=== PATIENT | male | born 1975 | race Caucasian/White ===

== ENCOUNTER 2023-12-07 10:43 | Outpatient (RCR) | payer OTHER, SELFPAY | END 2024-01-19 13:23 | disposition home or self-care (01) | LOC: PT 10:43 | PROVIDERS: PCP Nurse Practitioner Family; Visit Provider Nurse Practitioner Family | DX: M54.12 Radiculopathy, cervical region (principal) | CPT/HCPCS: 97012; 97110; 97140; 97161 ==

== ENCOUNTER 2023-12-31 11:57 | Outpatient (OUT) | payer OTHER, SELFPAY ==
--- NOTE | 2023-12-31 12:03 | XR_ITS ---
The [address] [address] Patient Name: LINDA SANZ MRN: [id number] date: 1975 Sex: M Assigned Patient Location: [facility] Current Patient Location: Accession/Order Number: [id number] Exam Date: 12/31/2023 12:05 Report Date: 01/03/2024 09:18 At the request of: LUANA BOWSER Procedure: XR cervical spine 5V EXAMINATION: XR cervical spine 5V HISTORY: Cervical Radiculopathy M54.12 ; right side neck pain for 2 months COMPARISON: No relevant comparison available. FINDINGS: BONES: Straightening of normal lordotic curvature. No fracture, spondylolisthesis, bone lesion. No significant facet arthropathy. DISC SPACES: Mild narrowing C4-5. Moderate narrowing C5-6 and C6-7 with mild uncovertebral joint spurring suspected suspected to cause mild foramen narrowing at these levels. PARASPINOUS: Negative. No paraspinous abnormality is seen. OTHER: Negative. XR/XR cervical spine 5V IMPRESSION: 1. No appreciable acute abnormality. 2. Multilevel mild to moderate degenerative changes. Consider MRI for further evaluation if symptoms persist. Electronically authenticated by: CECILIO TRIPATHI Date: 01/03/2024 09:18
== END 2023-12-31 11:58 | disposition home or self-care (01) ==
PROVIDERS: PCP Nurse Practitioner Family; Visit Provider Nurse Practitioner Family
DX: M54.12 Radiculopathy, cervical region (principal)
CPT/HCPCS: 72050

== ENCOUNTER 2024-01-03 10:50 | Outpatient (OUT) | payer OTHER, SELFPAY ==
[2024-01-03 11:09] LABS: Basophils Absolute Auto 0.1 10^3/uL (0.0-0.1); Basophils Percent Auto 0.4 % (0.2-2.0); Eosinophils Percent Auto 0.3 % (0.9-7.0); Hematocrit 47.3 % (42.0-54.0); Immature Granulocytes Abs Auto 0.08 10^3/uL (0.00-0.03); Immature Granulocytes Pct Auto 0.6 % (0.0-0.5); Lymphocytes Absolute Auto 3.8 10^3/uL (1.2-3.8); Lymphocytes Percent Auto 29.2 % (20.5-60.0); Mean Corpuscular HGB Conc 33.8 g/dL (29.9-35.2); Mean Corpuscular Hemoglobin 30.4 pg (25.9-34.0); Mean Corpuscular Volume 89.9 fL (80.0-94.0); Mean Platelet Volume 10.5 fL (9.5-13.5); Monocytes Absolute Auto 0.9 10^3/uL (0.3-0.8); Monocytes Percent Auto 6.6 % (1.7-12.0); Neutrophils Absolute Auto 8.1 10^3/uL (1.4-6.5); Neutrophils Percent Auto 62.9 % (43.0-75.0); Platelet Count 229 10^3/uL (150-450); Red Blood Count 5.26 10^6/uL (4.70-6.10); White Blood Count 12.9 10^3/uL (4.0-11.0)
[2024-01-03 12:16] LABS: Alanine Aminotransferase 27 U/L (16-63); Albumin Globulin Ratio 1.1; Albumin Level 3.8 g/dL (3.4-5.0); Alkaline Phosphatase 68 U/L (46-116); Anion Gap 13.2; Aspartate Amino Transferase 12 U/L (15-37); BUN Creatinine Ratio 16.7; Bilirubin Total 0.4 mg/dL (0.2-1.0); Calcium 9.5 mg/dL (8.5-10.1); Carbon Dioxide 28.3 mmol/L (21.0-32.0); Chloride 103 mmol/L (98-107); Chol HDL Ratio 3.6; Cholesterol 185 mg/dL (<=200); Estimated GFR (African America >60 (>=60); Estimated GFR (Non-African Ame >60 (>=60); Globulin 3.4 g/dL; Glucose 86 mg/dL (74-106); HDL Cholesterol 51 mg/dL (40-60); LDL Cholesterol Calculated 116.8 mg/dL; Potassium 3.5 mmol/L (3.5-5.1); Sodium 141 mmol/L (136-145); TSH W/ REFLEX FT4 1.719 uIU/mL (0.358-3.740); Total Protein 7.2 g/dL (6.4-8.2); Triglycerides 86 mg/dL (<=150); VLDL CHOLESTEROL 17.2 mg/dL
== END 2024-01-03 10:51 | disposition home or self-care (01) ==
LOC: LAB 10:51
PROVIDERS: PCP Nurse Practitioner Family; Visit Provider Nurse Practitioner Family
DX: Z13.0 Encounter for screening for diseases of the blood and blood-forming organs and certain disorders involving the immune mechanism (principal); Z83.49 Family history of other endocrine, nutritional and metabolic diseases; Z13.228 Encounter for screening for other metabolic disorders; Z13.220 Encounter for screening for lipoid disorders
CPT/HCPCS: 36415; 80053; 80061; 84443; 85025

== ENCOUNTER 2024-02-25 12:21 | Outpatient (OUT) | payer OTHER, SELFPAY ==
--- NOTE | 2024-02-25 12:25 | XR_ITS ---
The [address] [address] Patient Name: LINDA SANZ MRN: [id number] date: 1975 Sex: M Assigned Patient Location: [facility] Current Patient Location: [facility] Accession/Order Number: [id number] Exam Date: 02/25/2024 12:30 Report Date: 02/25/2024 12:44 At the request of: LUANA BOWSER Procedure: XR foreign body eye JEROMY EXAMINATION: XR foreign body eye JEROMY HISTORY: Pre MRI screening COMPARISON: No relevant comparison available. FINDINGS: ORBITS: Negative for a metallic foreign body. OTHER: Negative. XR/XR foreign body eye JEROMY IMPRESSION: No metallic foreign body in the orbits Electronically authenticated by: NIKKI MUNOZ Date: 02/25/2024 12:44
--- NOTE | 2024-02-25 12:25 | MR_ITS ---
The [place] [id number] Patient Name: ILNDA SANZ MRN: [id number] date: 1975 Sex: M Assigned Patient Location: [facility] Current Patient Location: Accession/Order Number: [id number] Exam Date: 02/25/2024 12:50 Report Date: 02/28/2024 17:26 At the request of: LUANA BOWSER Procedure: MR cervical spine wo/w con MR cervical spine wo/w con, 02/25/2024 12:50 PM EDT INDICATION: cervical radiculopathy at C7 COMPARISON: X-ray of cervical spine dated 12/31/2023 TECHNIQUE: Multiplanar, multisequential MRI images of cervical spine were obtained without and with contrast. FINDINGS: The sensitivity of the study has been decreased due to motion artifact. Mucosal thickening within the right maxillary sinus is noted. There is loss of normal physiologic cervical lordosis. The vertebral heights are relatively preserved. The cervicomedullary junction is unremarkable. No definite signal abnormality within the spinal cord is noted. There are mild disc osteophyte complex associated with uncovertebral joint arthrosis from C3 to T1. At the level of C2-C3, there is mild bilateral neuroforaminal narrowing and no canal stenosis. At the level of C3-C4, there is no neuroforaminal narrowing and no canal stenosis. At the level of C4-C5, there is mild left neuroforaminal narrowing and no canal stenosis. At the level of C5-C6, there is moderate to severe bilateral neuroforaminal narrowing and moderate canal stenosis. At the level of C6-C7, there is severe bilateral neuroforaminal narrowing and mild to moderate canal stenosis. Level of C7-T1, there is mild right neuroforaminal narrowing and no canal stenosis. No abnormal enhancing lesion is noted. No definite muscular or ligamentous injury is noted. MR/MR cervical spine wo/w con IMPRESSION: Moderate degenerative changes of the cervical spine in particular at C5-C6 and C6-C7. Electronically authenticated by: TOM KENT Date: 02/28/2024 17:26
== END 2024-02-25 12:22 | disposition home or self-care (01) ==
LOC: RAD 12:21
PROVIDERS: PCP Nurse Practitioner Family; Visit Provider Nurse Practitioner Family
DX: M47.22 Other spondylosis with radiculopathy, cervical region (principal)
CPT/HCPCS: 70030; 72156; A9575

== ENCOUNTER 2024-05-14 11:30 | Emergency (ER) | payer OTHER, SELFPAY ==
[2024-05-14 11:36] VITALS: BP 137/89; PULSE 86; TEMP 37.2; O2SAT 96; BMI 32.7
--- OUTSIDE RECORDS SUMMARY | 2024-05-14 11:53 | XMS_ITS | CCD ---
Author Organization [facility] Informformerly [facility], [facility] Partnership 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 Role Phone DR YOMAIRA RAI Primary Care Unavailable FREDI, DR BURNETTE Admitting Unavailable FREDI, DR BURNETTE Attending Unavailable FREDI, DR BURNETTE Primary Care Unavailable FREDI, DR BURNETTE Admitting Unavailable FREDI, DR BURNETTE Attending Unavailable FREDI, DR BURNETTE Primary Care Unavailable TAMIKO, DR SHELL Pérez Attending Unavailmartell MORRISON, DR SHELL Pérez Consulting Unavailmartell MORRISON, DR SHELL Pérez Admitting UnavailLuana Benavides Unavailable KALPESH BRANNON Attending Unavailable YOMAIRA RAI Referring Unavailable LUANA BOWSER Primary Care Unavailable KALPESH BRANNON Referring Unavailable LUANA BOWSER Primary Care Unavailable Allergies Allergy Classification Reported Allergen(s) Allergy Type Date of Onset Reaction(s) Facility (3 sources) oxyCODONE Drug Allergy 1 Unknown Reaction [facility] Repository (1 source) Acetaminophen / oxyCODONE Drug Allergy Unknown [facility] Other (2 sources) Acetaminophen Drug Allergy 4 Unknown Reaction [facility] (2 sources) Acetaminophen / oxyCODONE; Translations: [OXYCODONE-ACETAM INOPHEN] Drug Allergy 8 [facility] Repository Medications Current Medications Medication Drug Class(es) Dates Sig (Normalized) Sig (Original) amoxicillin 875 mg / clavulanate 125 mg oral tablet (1 source) Penicillin-class Antibacterial Start: 04-28-2023 take 1 tablet by mouth every twelve hours Amoxicillin-Pot Clavulanate 875-125 MG 1 tablet Orally every 12 hrs for 10 days Apr, Active cyclobenzaprine hydrochloride 10 mg oral tablet (1 source) Muscle Relaxant Start: 12-30-2023 take 10 mg by mouth three times daily Cyclobenzaprine Active 10 MG PO Three times daily 30 December 30, 2023 12:00am tamsulosin hydrochloride 0.4 mg oral capsule (3 sources) alpha-Adrenergic Cristian Start: 12-01-2023 take 0.4 mg by mouth once daily Tamsulosin Active 0.4 MG PO Daily December 01, 2023 12:00am take 1 capsule by [facility] every twenty-four hours Tamsulosin HCl 0.4 MG 1 capsule Orally Once a day Active Completed/Discontinued Medications Medication Drug Class(es) Dates Sig (Normalized) Sig (Original) methylPREDNISolone 4 mg oral tablet (3 sources) Corticosteroid Start: 4 End: 4 take 1 tablet by mouth once Methylprednisolone (Medrol (Rohit)) 4 mg tablets,dose pack Discontinued 0 PO per package directions 21 December 30, 2023 12:00am February 01, 2024 10:58am PO PER PKG DIR Problems Problem Classification Problem Date Documented Da te Episodic/Chronic Calculus of urinary tract (1 source) Calculus of kidney; Translations: [Calculus of kidney] Onset: 02-02-2024 Episodic E Codes: Cut/pierceb (1 source) Contact with other sharp object(s), not elsewhere classified, initial encounter; Translations: [[facility] OT SHRP OB NOT ELSW CLASS INI] Onset: 02-18-2022 Episodic Hyperplasia of prostate (2 sources) Benign prostatic hyperplasia with lower urinary tract symptoms; Translations: [Benign prostatic hyperplasia with lower urinary tract symptoms] Onset: 02-02-2024 Chronic Immunizations and screening for infectious disease (1 source) Encounter for immunization; Translations: [ENCOUNTER FOR IMMUNIZATION] Onset: 02-18-2022 Episodic Open wounds of extremities (4 sources) Laceration without foreign body of left great toe without damage to nail, initial encounter; Translations: [LAC NO FB LT GRT TOE NO DMG NL INIT] Onset: 02-15-2022 Episodic Other diseases of kidney and ureters (2 sources) Other obstructive and reflux uropathy; Translations: [Other obstructive and reflux uropathy] Onset: 02-02-2024 Episodic Other screening for suspected conditions (not mental disorders or infectious disease) (8 sources) Patient encounter status; Translations: [Encounter for screening for malignant neoplasm of colon] 12-30-2023 Episodic Other upper respiratory infections (1 source) Acute maxillary sinusitis, unspecified Episodic Residual codes; unclassified (1 source) FH: Thyroid disorder; Translations: [Family history of other endocrine, nutritional and metabolic diseases] 12-30-2023 Episodic Residual codes; unclassified (1 source) Family history of other endocrine, nutritional and metabolic diseases; Translations: [Family history of other endocrine and metabolic diseases] 12-30-2023 Episodic Spondylosis; intervertebral disc disorders; other back problems (2 sources) Cervical spondylosis; Translations: [Other spondylosis with radiculopathy, cervical region] 02-01-2024 Chronic Spondylosis; intervertebral disc disorders; other back problems (12 sources) Radiculopathy, cervical region; Translations: [Other dorsalgia] Onset: 07-01-2021 Episodic Substance-related disorders (1 source) Nicotine dependence, cigarettes, uncomplicated; Translations: [NICOTINE DEPEND CIGARETTES UNCOMP] Onset: 02-18-2022 Chronic Results Test Name Value Interpretation Reference Range Facility Prostate specific Ag [Mass/V ol]on 04-04-2024 PROSTATIC SPEC ANT 2.70 ng/mL Normal 0.00-4.00 [facility] Comment on above: Result Comment: The method used for this test is Kaden Crystal Clear Vision DXI chemiluminescent immunoassay. Values obtained by different assay methods cannot be used interchangeably. Performed By: #### 2 [id number] #### [facility] ([id number]) [address] [place] [address], [address] [place] [address] Basophils Auto (Bld) [#/Vol] on 01-03-2024 Basophils (Bld) [#/Vol] 0.1 10 3/uL 0.0-0.1 [facility] Basophils/100 WBC Auto (Bld) on 01-03-2024 Basophils/100 WBC (Bld) 0.4 % 0.2-2.0 [facility] Cholesterol in LDL Calc [Mas s/Vol]on 01-03-2024 Cholesterol in LDL [Mass/Vol] 116.8 mg/dL [facility] Comment on above: <100 mg/dl [id number] 0-129 mg/dl NEAR OR ABOVE [id number] mg/dl BORDERLINE [id number] mg/dl HIGH>190 mg/dl VERY HIGH Cholesterol in VLDL Calc [Ma ss/Vol]on 01-03-2024 Cholesterol in VLDL [Mass/Vol] 17.2 mg/dL [facility] Eosinophils/100 WBC Auto (Bl d)on 01-03-2024 Eosinophils/100 WBC (Bld) 0.3 % 0.9-7.0 [facility] Erythrocyte distribution wid th Auto (RBC) [Ratio]on 01-03-2024 Erythrocyte distribution width (RBC) [Ratio] 14.0 % 11.0-15.0 [facility] Estimated glomerular filtrat ion rate (GFR) non- Americanon 01-03-2024 GFR/1.73 sq M.predicted among non-blacks MDRD (S/P/Bld) [Vol rate/Area] mL/min/{1.73_m2} >=60 [facility] Globulin Calc (S) [Mass/Vol] on 01-03-2024 Globulin (S) [Mass/Vol] 3.4 g/dL [facility] Hematocrit Auto (Bld) [Volum e fraction]on 01-03-2024 Hematocrit (Bld) [Volume fraction] 47.3 % 42.0-54.0 [facility] Hemoglobin [Mass/volume] in Bloodon 01-03-2024 Hemoglobin (Bld) [Mass/Vol] 16.0 g/dL 14.0-18.0 [facility] Laboratory - Chemistry and C hemistry - challengeon 01-03-2024 Albumin [Mass/Vol] 3.8 g/dL 3.4-5.0 [facility] ALP [Catalytic activity/Vol] 68 U/L 46-116 [facility] ALT [Catalytic activity/Vol] 27 U/L 16-63 [facility] AST [Catalytic activity/Vol] 12 U/L 15-37 [facility] Bilirubin [Mass/Vol] 0.4 mg/dL 0.2-1.0 [facility] Calcium [Mass/Vol] 9.5 mg/dL 8.5-10.1 [facility] Chloride [Moles/Vol] 103 mmol/L 98-107 [facility] Cholesterol [Mass/Vol] 185 mg/dL <=200 [facility] Cholesterol in HDL [Mass/Vol] 51 mg/dL 40-60 [facility] Comment on above: > or =60 mg/dl - LOW CARDIOVASCULAR RISK<40 mg/dl - HIGH CARDIOVASCULAR RISK CO2 [Moles/Vol] 28.3 mmol/L 21.0-32.0 [facility] Creatinine [Mass/Vol] 0.96 mg/dL 0.70-1.30 [facility] GFR/1.73 sq M.predicted MDRD (S/P/Bld) [Vol rate/Area] mL/min/{1.73_m2} >=60 [facility] Glucose [Mass/Vol] 86 mg/dL 74-106 [facility] Potassium [Moles/Vol] 3.5 mmol/L 3.5-5.1 [facility] Protein [Mass/Vol] 7.2 g/dL 6.4-8.2 [facility] Sodium [Moles/Vol] 141 mmol/L 136-145 [facility] Triglyceride [Mass/Vol] 86 mg/dL <=150 [facility] TSH Qn 1.719 m[IU]/L 0.358-3.740 [facility] Urea nitrogen [Mass/Vol] 16.0 mg/dL 7.0-18.0 [facility] Urea nitrogen/Creatinine [Mass ratio] 16.7 mg/mg [facility] Laboratory - Hematology and Cell countson 01-03-2024 Immature granulocytes/100 WBC (Bld) 0.6 % 0.0-0.5 [facility] Leukocytes [#/volume] correc howie for nucleated erythrocytes in Blood by Automated counon 01-03-2024 WBC corrected for nucl RBC Auto (Bld) [#/Vol] 12.9 10 3/uL 4.0-11.0 [facility] Lymphocytes Auto (Bld) [#/Vo l]on 01-03-2024 Lymphocytes (Bld) [#/Vol] 3.8 10 3/uL 1.2-3.8 [facility] Lymphocytes/100 WBC Auto (Bl d)on 01-03-2024 Lymphocytes/100 WBC (Bld) 29.2 % 20.5-60.0 [facility] MCH Auto (RBC) [Entitic mass ]on 01-03-2024 MCH (RBC) [Entitic mass] 30.4 pg 25.9-34.0 [facility] MCHC Auto (RBC) [Mass/Vol]on 01-03-2024 MCHC (RBC) [Mass/Vol] 33.8 g/dL 29.9-35.2 [facility] MCV Auto (RBC) [Entitic vol] on 01-03-2024 MCV (RBC) [Entitic vol] 89.9 fL 80.0-94.0 [facility] Monocytes Auto (Bld) [#/Vol] on 01-03-2024 Monocytes (Bld) [#/Vol] 0.9 10 3/uL 0.3-0.8 [facility] Monocytes/100 WBC Auto (Bld) on 01-03-2024 Monocytes/100 WBC (Bld) 6.6 % 1.7-12.0 [facility] Neutrophils Auto (Bld) [#/Vo l]on 01-03-2024 Neutrophils (Bld) [#/Vol] 8.1 10 3/uL 1.4-6.5 [facility] Neutrophils/100 WBC Auto (Bl d)on 01-03-2024 Neutrophils/100 WBC (Bld) 62.9 % 43.0-75.0 [facility] No Panel Informationon 01-02 Eosinophils # (Auto) 0.0 10 3/uL 0.0-0.7 [facility] Immature Granulocyte # (Auto) 0.08 10 3/uL 0.00-0.03 [facility] Platelet mean volume Auto (B ld) [Entitic vol]on 01-03-2024 Platelet mean volume (Bld) [Entitic vol] 10.5 fL 9.5-13.5 [facility] Platelets Auto (Bld) [#/Vol] on 01-03-2024 Platelets (Bld) [#/Vol] 229 10 3/uL 150-450 [facility] RBC Auto (Bld) [#/Vol]on RBC (Bld) [#/Vol] 5.26 10 6/uL 4.70-6.10 [facility] Serum or plasma albumin/glob ulin mass ratioon 01-03-2024 Albumin/Globulin [Mass ratio] 1.1 {ratio} [facility] Serum or plasma anion gap de terminationon 01-03-2024 Anion gap [Moles/Vol] 13.2 mmol/L [facility] Serum or plasma total choles terol/high density lipoprotein (HDL) cholesterol mass angie 01-03-2024 Cholesterol.total/Cho lesterol in HDL [Mass ratio] 3.6 {ratio} [facility] Comment on above: 3.3 - 4.4 LOW RISK4. 4 - 7.1 AVERAGE RISK7.1 - 11.0 MODERATE RISK>11.0 HIGH RISK Vital Signs Date Time Vital Sign Value Performing Clinician Facility 02-01-2024 10:57-0400 Body height 172.72 cm [facility] 02-01-2024 10:57-0400 Body mass index (BMI) [Ratio] 32.1 kg/m2 [facility] 02-01-2024 10:57-0400 Body weight 95.7 kg [facility] 02-01-2024 10:57-0400 Diastolic blood pressure 84 mm[Hg] [facility] 02-01-2024 10:57-0400 Heart rate 80 /min [facility] 02-01-2024 10:57-0400 SaO2% (BldA) [Mass fraction] 98 % [facility] 02-01-2024 10:57-0400 Systolic blood pressure 128 mm[Hg] [facility] 12-30-2023 10:27-0400 Body height 172.72 cm [facility] 12-30-2023 10:27-0400 Body mass index (BMI) [Ratio] 32.3 kg/m2 [facility] 12-30-2023 10:27-0400 Body weight 96.61 kg [facility] 12-30-2023 10:27-0400 Diastolic blood pressure 92 mm[Hg] [facility] 12-30-2023 10:27-0400 Heart rate 74 /min [facility] 12-30-2023 10:27-0400 SaO2% (BldA) [Mass fraction] 98 % [facility] 12-30-2023 10:27-0400 Systolic blood pressure 148 mm[Hg] [facility] 12-02-2023 09:36-0400 Body height 172.72 cm [facility] 12-02-2023 09:36-0400 Body mass index (BMI) [Ratio] 33 kg/m2 [facility] 12-02-2023 09:36-0400 Body weight 98.42 kg [facility] 12-02-2023 09:36-0400 Diastolic blood pressure 90 mm[Hg] [facility] 12-02-2023 09:36-0400 Heart rate 85 /min [facility] 12-02-2023 09:36-0400 SaO2% (BldA) [Mass fraction] 98 % [facility] 12-02-2023 09:36-0400 Systolic blood pressure 130 mm[Hg] [facility] 04-28-2023 10:30-0400 Body height 172.72 cm Luana Bowser Other [facility] Other 04-28-2023 10:30-0400 Body mass index (BMI) [Ratio] 31.11 kg/m2 Luana Bowser Other [facility] Other 04-28-2023 10:30-0400 Body weight 92.81 kg Luana Bowser Other [facility] Other 04-28-2023 10:30-0400 Diastolic blood pressure 84 mm[Hg] Luana Bowser Other [facility] Other 04-28-2023 10:30-0400 SaO2% (BldA) [Mass fraction] 97 % Luana Bowser Other [facility] Other 04-28-2023 10:30-0400 Systolic blood pressure 126 mm[Hg] Luana Bowser Other [facility] Other Encounters Encounter Date Encounter Type Care Provider Facility Start: 04-04-2024 End: 04-04-2024 ambulatory [facility] Start: 02-02-2024 End: 02-02-2024 ambulatory [facility] Start: 02-01-2024 End: 02-01-2024 ambulatory [facility] Work Phone: Start: 02-01-2024 End: 02-01-2024 Patient encounter procedure [facility] Work Phone: Start: 01-03-2024 Non-patient / Non-visit [facility] Work Phone: Start: 12-30-2023 End: 12-30-2023 Patient encounter procedure [facility] Work Phone: Start: 12-02-2023 End: 12-02-2023 ambulatory [facility] Work Phone: Start: 12-02-2023 End: 12-02-2023 Patient encounter procedure [facility] Work Phone: Start: 04-28-2023 End: 04-28-2023 ambulatory Luana Bowser Other [facility] Other Start: 04-28-2023 Office outpatient ne w 20 minutes Luana Bowser [facility] Start: 02-15-2022 End: 02-15-[address] YOMAIRA RAI Facility:[facility] Start: 08-17-2021 End: 08-21-[address] YOMAIRA RAI Facility:[facility] Start: 06-18-2021 End: 08-15-[address] YOMAIRA RAI Facility:[facility] Procedures Date Procedure Procedure Detail Performing Clinician Start: 02-02-2024 Follow-up visit Follow-up KALPESH BRANNON Plan of Treatment Date Care Activity Detail Author Comprehensive metabo lic 1999 panel - Serum or Plasma [facility] enter MR Cervical spine WO and W contrast IV [facility] XR Cervical spine 5 Views Fi [facility] Immunizations Immunization Date Immunization Notes Care Provider Fa brentonty 02-15-2022 diphtheria, tetanus toxoids and pertussis vaccine Luana Bowser Other [facility] Payers Date Payer Category Payer Medicaid [id number] 1975 Unknown [id number] [id number] [id number] 1975 Unknown [id number] 2.16.84 [id number] 1975 Unknown [id number] 2.16.84 [id number] 1975 Unknown [id number] 2.16.8 [id number] 1975 Unknown [id number] 2.16.8 [id number] 1959 Unknown [id number] Self-pay Self Pay [id number] Social History Date Type Detail Facility Sex Assigned At [facility] Other Start: 12-02-2023 Tobacco smoking stat [facility] Never smoked tobacco (finding) [facility] Start: 1975 Sex Assigned At Male F [facility] Evaluation note 04-28-2023 Note Date & Type Note Facility 04-28-2023 Evaluation note Encounter Date Diagnosis Assessment Notes Apr, Acute non-recurren t maxillary sinusitis (ICD-10 - J01.00) Will tx tody for bacterial sinusitis based on physical exam and duration of symptoms. Take antibiotic as prescribed, complete entire course of therapy even if symptoms resolve. May take OTC Mucinex and FLonase for symptoms Supportive care as directed, push fluids and rest, Tylenol/Motrin as directed for aches/fever, warm moist compress over sinuses several times a day, cool mist humidifier, nasal saline spray as directed. Symptoms should improve in the next 3 days, if symptoms persist follow-up. Immediate eval for warning s/sx as discussed. Patient verbalizes understanding and is agreeable to treatment plan. [facility] Other Evaluation note Note Date & Type Note Facility Evaluation note Diagnosis Onset Date Cervical radiculopathy at C7 acute [facility] Work Phone: Evaluation note Note Date & Type Note Facility Evaluation note Diagnosis Onset Date Cervical radiculopathy at C7 acute Cervical radiculopathy at C7 acute Family history of thyroid disease acute Screening for colon cancer a cute Screening for lipid disorders acute Screening for metabolic disorder acute Screening, deficiency anemia, iron acute Cervical radiculopathy at C7 acute Degenerative arthritis of ce rvical spine with nerve compression acute [facility] Work Phone: History general Narrative - Reported Note Date & Type Note Facility History general Narrative - Reported Type Medical History Growth in urinary tract Surgical History Cystoscopy [facility] Other Summary Purpose Family History No Family History Records Found Relationship Condition Age at Onset Recorded Date/T zoie sister Family history of thyroid disease Unknown Advance Directives No Advanced Directives Records Found Advance Directive Response Recorded Date/ Time Advance Directives No February 25 11:49am Chief Complaint and Reason for Visit Chief Complaint Pinched nerve in jillian k Reason for Visit Cervical radiculopat hy at C7 Chief Complaint Pinched nerve in jillian k Back Pain PT follow up Reason for Visit Cervical radiculopat hy at C7 Cervical radiculopathy at C7 Family history of thyroid disease Screening for colon cancer Screening for lipid disorders Screening for metabolic disorder Screening, deficiency anemia, iron Cervical radiculopathy at C7 Degenerative arthritis of cervical spine with nerve compression Additional Source Comments (unrecognized sect ion and content) No Status Records FoundNo Status Records FoundNo Status Records Found INFORMATION SOURCE (unrecogn ized section and content) DATE CREATED AUTHOR 02/18/2022 [facility] DATE CREATED AUTHOR AUTHOR'S ORGANIZ ATION 02/04/2024 [facility] DATE CREATED AUTHOR AUTHOR'S ORGANIZ ATION 04/06/2024 [facility] REASON FOR VISIT (unrecogniz ed section and content) Check Up/ Establish Care Teams (unrecognized sec tion and content) Team Status: Active Member Role Status Dates Luana Bowser APRN ALLEY CLEANER-C Primary Care Provider Active Team Status: Inactive Member Role Status Dates Luana Bowser APRN ALLEY CLEANER-C Primary Care Provider, Attending Provider Active Start: December 02, 2023 End: December 02, 2023 Team Status: Inactive Member Role Status Dates Luana Bowser APRN ALLEY CLEANER-C Primary Care Provider, Attending Provider Active Start: December 30, 2023 End: December 30, 2023 Team Status: Active Member Role Status Dates Luana Bowser APRN ALLEY CLEANER-C Primary Care Provider, Attending Provider Active Start: January 03, 2024 Team Status: Inactive Member Role Status Dates Luana Bowser APRN ALLEY CLEANER-C Primary Care Provider, Attending Provider Active Start: February 01, 2024 End: February 01, 2024 Goals (unrecognized section and content) Goals may be documented in a n alternate section FOR RECORDS PERTAINING TO PATIENTS WHO ARE OR HAVE BEEN ENROLLED IN A CHEMICAL DEPENDENCY/SUBSTANCEABUSE PROGRAM, SOME INFORMATION MAY BE OMITTED. This clinical summary was aggregated from multiple sources. Caution should be exercised in using it in the provision of clinical care. This summary normalizes information from multiple sources, and as a consequence, information in this document may materially change the coding, format and clinical context of patient data. In addition, data may be omitted in some cases. CLINICAL DECISIONS SHOULD BE BASED ON THE PRIMARY CLINICAL RECORDS. [employer] [facility]. provides no warranty or guarantee of the accuracy or completeness of information in this document.
[2024-05-14 11:57] LABS: Bilirubin Urine NEGATIVE (NEGATIVE); Blood Urine NEGATIVE (NEGATIVE); Clarity Urine CLEAR (CLEAR); Color Urine YELLOW (YELLOW); Glucose Urine UA NEGATIVE (NEGATIVE); Ketones Urine TRACE mg/dL (NEGATIVE); Leukocyte Esterase Urine NEGATIVE (NEGATIVE); Nitrite Urine NEGATIVE (NEGATIVE); Protein Urine 100 mg/dL (NEG/TRACE); Specific Gravity Urine >=1.030 (1.005-1.025)
--- NOTE | 2024-05-14 12:14 | ED_ITS ---
HPI - Male Genitourinary General Chief complaint: Urogenital-Male Stated complaint: PAIFULL URINATION Time Seen by Provider: 05/14/24 11:31 Source: patient Mode of arrival: walk-in Limitations: no limitations History of Present Illness HPI Narrative: 48-year-old male presents to the emergency department for frequency of urination and pain on urination. He has had it for about a week. He sees a urologist and thinks he may have an enlarged prostate but he is not completely certain, official diagnosis not given yet. He has had no unusual back pain or hematuria or fever. No vomiting. Related Data Home Medications ?Medication ?Instructions ?Recorded ?Confirmed tamsulosin 0.4 mg capsule 0.4 mg PO Q24H 05/14/24 05/14/24 Previous Rx's ?Medication ?Instructions ?Recorded ciprofloxacin HCl 250 mg tablet 250 mg PO BID #14 tabs 05/14/24 (Cipro) Allergies Allergy/AdvReac Type Severity Reaction Status Date / Time acetaminophen [From Percocet] AdvReac Severe Vomiting Verified 05/14/24 11:35 oxycodone [From Percocet] AdvReac Severe Vomiting Verified 05/14/24 11:35 Review of Systems ROS Narrative A ten point review of systems is negative except as noted above. PFSH PFSH Social History Little interest or pleasure in doing things: not at all Feeling down, depressed, or hopeless: not at all Exam Narrative Exam Narrative: Nurses note and vital signs reviewed and patient is not hypoxic. General: The patient appears well and in no apparent distress. Patient is resting comfortably on cart. Skin: Warm, dry, no pallor noted. There is no rash noted. Head: Normocephalic, atraumatic Eye: Normal conjunctiva, no drainage Ears, Nose, Mouth, and Throat: oral mucosa is moist. Nares patent. Cardiovascular: Regular Rate and Rhythm Respiratory: Patient is in no distress, no accessory muscle use, lungs are clear to auscultation, no wheezing, rales or rhonchi Back: non-tender, no CVA tenderness bilaterally to percussion. GI: Soft and nontender Musculoskeletal: The patient has no evidence of calf tenderness, no pitting edema, symmetrical pulses noted bilaterally Neurological: A&O, normal speech Psychiatric: Cooperative Constitutional Vital Signs, click to edit/add: Last Vital Signs Temp 98.9 F 09/29/24 11:36 Pulse 86 05/14/24 11:36 Resp 20 05/14/24 11:36 BP 137/89 05/14/24 11:36 Pulse Ox 96 05/14/24 11:36 O2 Del Method Room Air 05/14/24 11:36 Course Vital Signs Vital signs: Vital Signs Temperature 98.9 F 05/14/24 11:36 Pulse Rate 86 05/14/24 11:36 Respiratory Rate 20 05/14/24 11:36 Blood Pressure 137/89 05/14/24 11:36 Pulse Oximetry 96 05/14/24 11:36 Oxygen Delivery Method Room Air 05/14/24 11:36 Temperature 98.9 F 05/14/24 11:36 Pulse Rate 86 05/14/24 11:36 Respiratory Rate 05/14/24 11:36 Blood Pressure 137/89 05/14/24 11:36 Pulse Oximetry 96 05/14/24 11:36 Oxygen Delivery Method Room Air 05/14/24 11:36 MDM - Male Genitourinary MDM Narrative Medical decision making narrative: Bladder scan showed only 19 mL. Urinary tract infection is found on the urinalysis and he is prescribed Cipro. He will follow-up with his urologist if there is no improvement. Treatment diagnosis and follow-up were discussed with the patient. Differential Diagnosis Differential diagnosis: Likely urinary tract infection and acute retention of urine Lab Data Attestation: I reviewed the patient's lab results. Labs: Lab Results 05/14/24 Range/Units 11:47 Urine Color Yellow (YELLOW) Urine Clarity Clear (CLEAR) Urine pH 6.0 (5.0-9.0) Ur Specific [place] >=1.030 A (1.005-1.025) Urine Protein 100 A (NEG/TRACE) mg/dL Urine Glucose (UA) Negative (NEGATIVE) mg/dL Urine Ketones Trace A (NEGATIVE) mg/dL Urine Occult Blood Negative (NEGATIVE) Urine Nitrite Negative (NEGATIVE) Urine Bilirubin Negative (NEGATIVE) Urine Urobilinogen 1.0 (0.2-1.0) EU/dL Ur Leukocyte Esterase Negative (NEGATIVE) Urine RBC 0-2 (0-2) #/HPF Urine WBC 5-10 A (NONE SEEN) #/HPF Ur Squamous Epith Cells Few A (NONE/RARE) #/LPF Urine Crystals None seen (None Seen) #/HPF Urine Bacteria Moderate A (NONE SEEN) #/HPF Urine Casts None seen (NONE SEEN) #/LPF Urine Mucus Moderate A (NONE SEEN) Urine Sperm Seen Ur Culture Indicated? Yes Discharge Plan Discharge Chief Complaint: Urogenital-Male Clinical Impression: Urinary tract infection Patient Disposition: Home, Self-Care Time of Disposition Decision: 12:43 Condition: Good Mode of Transportation: Private Vehicle Prescriptions / Home Meds: New ciprofloxacin HCl [Cipro] 250 mg tablet 250 mg PO BID Qty: 14 0RF No Action tamsulosin 0.4 mg capsule 0.4 mg PO Q24H Print Language: [place] Instructions: Urinary Tract Infection in Men (ED) Referrals: LUANA BOWSER [Primary Care Provider] - 1 week
[2024-05-14 12:18] LABS: RBC Urine 0-2 #/HPF (0-2)
[2024-05-14 12:19] LABS: Bacteria Urine MODERATE #/HPF (NONE SEEN); Cast Seen? NONE SEEN #/LPF (NONE SEEN); Crystals Seen? None Seen #/HPF (None Seen); Mucus Urine MODERATE (NONE SEEN); Sperm Urine SEEN; Squamous Epithelial Cell Urine FEW #/LPF (NONE/RARE)
[2024-05-14 12:20] LABS: Urine Culture Indicated YES
== END 2024-05-14 12:45 | disposition home or self-care (01) ==
PROVIDERS: Emergency Provider Emergency Medicine; PCP Nurse Practitioner Family
DX: N39.0 Urinary tract infection, site not specified (principal)
CPT/HCPCS: 81001; 87086; 99283

== ENCOUNTER 2024-11-09 10:53 | Outpatient (RCR) | payer OTHER, SELFPAY | END 2024-12-20 10:33 | disposition home or self-care (01) | LOC: PT 10:53 | PROVIDERS: PCP Nurse Practitioner Family; Visit Provider Nurse Practitioner Family | DX: M47.22 Other spondylosis with radiculopathy, cervical region (principal) | CPT/HCPCS: 97012; 97110; 97140; 97161 ==